=== PATIENT | male | born 1980 | race American Indian/Alaskan Native ===

== ENCOUNTER 2021-11-08 01:32 | Emergency (ER) | payer SELFPAY ==
[2021-11-08 02:52] VITALS: BP 155/74
[2021-11-08] MEDS ORDERED: ONDANSETRON 4 MG ODT TAB PO ONE (05:01)
[2021-11-08] MEDS ORDERED: IBUPROFEN 600 MG TAB PO ONE (05:01)
[2021-11-08] MEDS ORDERED: HYDROcodone/ACETAMINOPHEN 7.5-325MG TAB PO ONE (05:01)
[2021-11-08] MEDS ORDERED: predniSONE 20 MG TAB PO ONE (05:01)
[2021-11-08] MEDS ORDERED: AMOXICILLIN/K CLAV 875/125MG TAB PO ONE (05:01)
--- NOTE | 2021-11-08 05:25 | Emergency Department Report ---
ED General Adult HPI - General Chief complaint: Dental/Oral Stated complaint: MOUTH PAIN/DENTAL ABSCESS Source: patient Mode of arrival: Ambulatory Limitations: No Limitations - History of Present Illness Initial comments: Patient is a nulliparous 31-year-old [place] female with no past medical history who presented to the ED with complaint of acute onset persistent head ache, body aches and pains, diarrhea, nausea and mild diffuse abdominal pain for the last 3 days after eating at a restaurant. Patient states that she has not been able to eat anything in the last 24 hours because of persistent diarrhea and nausea. Patient denies dizziness, syncope, fever, chills, chest pain or shortness of breath, neck pain, dysphagia, dysphonia, sore throat, nasal and sinus congestion, abdominal pain, nausea and vomiting. MD Complaint: dental abscess; swollen gums -: Sudden, week(s) (1) Location: mouth Radiation: non-radiation Severity scale (0 -10): 7 Quality: aching, sharp Consistency: constant Improves with: none Worsens with: eating Associated Symptoms: denies other symptoms. denies: confusion, chest pain, cough, diaphoresis, fever/chills, headaches, loss of appetite, malaise, nausea/vomiting, rash, seizure, shortness of breath, syncope, weakness Treatments Prior to Arrival: none - Related Data Previous Rx's Medication Instructions Recorded Last Taken Type Clindamycin [Clindamycin CAP] 300 mg PO Q8HR #60 capsule 11/08/21 Unknown Rx Ketorolac [Toradol] 10 mg PO Q8H PRN #20 tablet 11/08/21 Unknown Rx predniSONE [Deltasone] 40 mg PO QDAY #10 tab 11/08/21 Unknown Rx traMADoL [Ultram] 50 mg PO Q6HR PRN #12 tablet 11/08/21 Unknown Rx Allergies Allergy/AdvReac Type Severity Reaction Status Date / Time No Known Allergies Allergy Verified 11/08/21 05:03 ED Review of Systems ROS: Stated complaint: MOUTH PAIN/DENTAL ABSCESS Other details as noted in HPI Constitutional: denies: chills, fever Eyes: denies: eye pain, eye discharge, vision change ENT: dental pain (Right maxillary premolar and molar toothache; swollen painful right maxillary gingiva). denies: ear pain, throat pain, hearing loss, congestion Respiratory: denies: cough, shortness of breath, wheezing Cardiovascular: denies: chest pain, palpitations Endocrine: no symptoms reported Gastrointestinal: denies: abdominal pain, nausea, diarrhea Genitourinary: denies: urgency, dysuria Musculoskeletal: denies: back pain, joint swelling, arthralgia Skin: denies: rash, lesions Neurological: denies: headache, weakness, paresthesias Psychiatric: denies: anxiety, depression Hematological/Lymphatic: denies: easy bleeding, easy bruising ED Past Medical Hx - Past Medical History Previous Medical History?: No - Surgical History Past Surgical History?: No - Medications Home Medications: Home Medications Medication Instructions Recorded Confirmed Last Taken Type Clindamycin [Clindamycin CAP] 300 mg PO Q8HR #60 capsule 11/08/21 Unknown Rx Ketorolac [Toradol] 10 mg PO Q8H PRN #20 tablet 11/08/21 Unknown Rx predniSONE [Deltasone] 40 mg PO QDAY #10 tab 11/08/21 Unknown Rx traMADoL [Ultram] 50 mg PO Q6HR PRN #12 tablet 11/08/21 Unknown Rx ED Physical Exam - General Limitations: No Limitations General appearance: alert, in no apparent distress - Head Head exam: Present: atraumatic, normocephalic, normal inspection - Eye Eye exam: Present: normal appearance, PERRL, EOMI Pupils: Present: normal accommodation - ENT ENT exam: Present: mucous membranes moist, TM's normal bilaterally, normal external ear exam, other (Swollen, severely tender right maxillary gingiva; severely tender right maxillary premolar and molar teeth) - Neck Neck exam: Present: normal inspection, full ROM. Absent: lymphadenopathy - Respiratory Respiratory exam: Present: normal lung sounds bilaterally. Absent: respiratory distress, wheezes, rales, rhonchi, chest wall tenderness, accessory muscle use, prolonged expiratory - Cardiovascular Cardiovascular Exam: Present: normal rhythm, bradycardia, normal heart sounds. Absent: systolic murmur, diastolic murmur, rubs, gallop - GI/Abdominal GI/Abdominal exam: Present: soft, normal bowel sounds. Absent: tenderness, guarding, rebound, hyperactive bowel sounds, hypoactive bowel sounds, organomegaly - Extremities Exam Extremities exam: Present: normal inspection, full ROM, normal capillary refill - Back Exam Back exam: Present: normal inspection, full ROM. Absent: tenderness, CVA tenderness (R), CVA tenderness (L), muscle spasm, paraspinal tenderness, vertebral tenderness - Neurological Exam Neurological exam: Present: alert, oriented X3, CN II-XII intact, normal gait, reflexes normal - Psychiatric Psychiatric exam: Present: normal affect, normal mood - Skin Skin exam: Present: warm, dry, intact, normal color. Absent: rash ED Course Vital Signs 11/08/21 02:43 Temperature 98.7 F Pulse Rate 46 L Respiratory 16 Rate Blood Pressure 155/74 [Right] O2 Sat by Pulse 100 Oximetry ED Medical Decision Making - Medical Decision Making This is a nulliparous 31-year-old [place] female with no past medical history who presented to the ED with complaint of acute onset persistent headache, body aches and pains, diarrhea, nausea and mild diffuse abdominal pain for the last 3 days after eating at a restaurant. Patient states that she has not been able to eat anything in the last 24 hours because of persistent diarrhea and nausea. In the ED, patient is alert and oriented x3 and is not in any distress. Patient was treated for pain in the ED and on reevaluation, patient's pain is well controlled medication. Patient was discharged home on pain medications and antibiotics and advised to follow-up with his dentist in 7 to 10 days for reevaluation or return to the ED immediately if symptoms get worse. - Differential Diagnosis Dental abscess; gingivitis; dental caries; Critical care attestation.: If time is entered above; I have spent that time in minutes in the direct care of this critically ill patient, excluding procedure time. ED Disposition Clinical Impression: Dental abscess, Acute gingivitis, Dental caries Disposition: HOME / SELF CARE / HOMELESS Is pt being admited?: No Does the pt Need Aspirin: No Condition: Stable Instructions: Dental Abscess, [id number], Trench Mouth Additional Instructions: Take medication with food, drink plenty of fluids and follow-up with your dentist in 7 to 10 days for reevaluation. Return to the ED immediately if symptoms get worse. Prescriptions: Clindamycin [Clindamycin CAP] 300 mg PO Q8HR #60 capsule predniSONE [Deltasone] 40 mg PO QDAY #10 tab Ketorolac [Toradol] 10 mg PO Q8H PRN #20 tablet PRN Reason: Pain traMADoL [Ultram] 50 mg PO Q6HR PRN #12 tablet PRN Reason: Pain Referrals: [facility] [Outside] - 7-10 days Forms: Work/School Release Form(ED) Time of Disposition: 05:21 Print Language: CHINESE
== END 2021-11-08 05:00 | disposition home or self-care (01) ==
LOC: EDBD → ED 01:32
DX: K04.7 Periapical abscess without sinus (principal); K05.00 Acute gingivitis, plaque induced; K02.9 Dental caries, unspecified
CPT/HCPCS: 99282; J7512; J3490; Q0162